=== PATIENT | male | born 1945 | race Caucasian/White ===

== ENCOUNTER 2019-03-17 13:36 | Inpatient (IN) | payer OTHER ==
[~2019-03-17] VITALS: Ht 167.6 cm; Wt 61.0 kg
[2019-03-17 13:41] VITALS: Ht 167.6 cm; Wt 61.0 kg
[2019-03-17 14:31] LABS: BASOPHIL % 0.8 % (0-2); PLATELET COUNT 135 x10^3mcL (130-400)
[2019-03-17 14:32] LABS: RED CELL DISTRIBUTION WIDTH 16.7 % (11.5-14.5)
[2019-03-17 14:39] LABS: CALCIUM 9.4 mg/dL (8.5-10.1); CHLORIDE SERUM 104 mmol/L (98-107); CREATININE SERUM 1.2 mg/dL (0.7-1.3); GLUCOSE SERUM 133 mg/dL (74-106); POTASSIUM SERUM 3.7 mmol/L (3.5-5.1); SODIUM SERUM 138 mmol/L (136-145)
[2019-03-17 14:44] LABS: ALBUMIN 3.5 g/dL (3.4-5.0); ALKALINE PHOSPHATASE 185 U/L (46-116); ALT/SGPT 98 U/L (16-63); AST/SGOT 120 U/L (15-37); BILIRUBIN TOTAL 1.8 mg/dL (0.20-1.00); TOTAL PROTEIN, SERUM 8.6 g/dL (6.4-8.2)
[2019-03-17 17:05] LABS: microscopic required? YES; urine erythrocyte 3+ (NEGATIVE)
[2019-03-17 17:05] LABS: T3 TOTAL 1.65 ng/mL
[2019-03-17 17:07] LABS: FREE T4 1.18 ng/dL (0.76-1.46)
[2019-03-17 17:08] LABS: FREE THYROXINE INDEX 3.9 ug/dL (1.4-4.5); T4(THYROXINE) 13.8 ug/dL (4.7-13.3)
[2019-03-17 17:21] LABS: AMPHETAMINE QUAL UR NONE DETECTED (See below)
[2019-03-17 18:30] VITALS: BP 143/84
[2019-03-17 20:24] VITALS: BP 140/86
[2019-03-17 20:27] LABS: BASOPHIL % 0.7 % (0-2); PLATELET COUNT 152 x10^3mcL (130-400)
[2019-03-17 20:29] LABS: RED CELL DISTRIBUTION WIDTH 16.9 % (11.5-14.5)
[2019-03-17 22:00] VITALS: BP 102/53
[2019-03-17 22:47] LABS: BASOPHIL % 0.4 % (0-2); PLATELET COUNT 141 x10^3mcL (130-400)
[2019-03-17 22:48] LABS: RED CELL DISTRIBUTION WIDTH 16.9 % (11.5-14.5)
== END 2019-03-18 05:40 | disposition expired | DRG 872 ==
LOC: ED 13:36 → MU 16:23 → DU 16:23 → MU 18:01 → DU 18:58 → IC 23:19
PROVIDERS: Emergency Medicine; ADMIT Internal Medicine
PROC: 3C1ZX8Z Irrigation of Indwelling Device using Irrigating Substance, External Approach (ICD-10-PCS; principal; 2019-03-17)
PROC: 0BH17EZ Insertion of Endotracheal Airway into Trachea, Via Natural or Artificial Opening (ICD-10-PCS; 2019-03-18)
PROC: 5A12012 Performance of Cardiac Output, Single, Manual (ICD-10-PCS; 2019-03-18)
DX: A41.9 Sepsis, unspecified organism (principal); D62 Acute posthemorrhagic anemia; N39.0 Urinary tract infection, site not specified; I47.2 Ventricular tachycardia; N13.30 Unspecified hydronephrosis; R31.0 Gross hematuria; R57.8 Other shock; I49.01 Ventricular fibrillation; C67.9 Malignant neoplasm of bladder, unspecified; N40.1 Benign prostatic hyperplasia with lower urinary tract symptoms; R33.8 Other retention of urine; N20.0 Calculus of kidney; B18.2 Chronic viral hepatitis C; Z95.0 Presence of cardiac pacemaker; Z87.891 Personal history of nicotine dependence
CPT/HCPCS: 82962; 84439; 99406; G0378; J0696; J1170; J2270; J2405; J3490; J7030; J7050; P9016; Q0092